=== PATIENT | male | born 1950 | race Caucasian/White ===

== ENCOUNTER → 2020-02-26 | Outpatient (CLI) | payer BC | END | disposition home or self-care (01) | LOC: LABWHC1 14:00 | PROVIDERS: ATTEND Internal Medicine | DX: Z20.828 Contact with and (suspected) exposure to other viral communicable diseases (principal) | CPT/HCPCS: U0003; C9803 ==

== ENCOUNTER → 2021-01-06 | Outpatient (CLI) | payer BC ==
--- NOTE | 2021-01-06 09:42 | XR ---
EXAMINATION TYPE: XR Hip Bilateral and AP pelvis DATE OF EXAM: 01/06/2021 CLINICAL HISTORY: pain TECHNIQUE: Single view the pelvis and bilateral hips submitted. FINDINGS: No evidence for fracture, dislocation or bony lesion. Joint spaces are well-preserved. S I joints appear symmetric. IMPRESSION: 1. No acute fracture or dislocation seen. ICD 10 NO FRACTURE, INITIAL EVALUATION
== END | disposition home or self-care (01) ==
LOC: RADXRMAIN 09:03
PROVIDERS: ATTEND Internal Medicine
DX: Z12.5 Encounter for screening for malignant neoplasm of prostate (principal); R10.30 Lower abdominal pain, unspecified
CPT/HCPCS: 73521

== ENCOUNTER → 2021-12-21 | Outpatient (CLI) | payer MEDICARE ==
[2021-12-21 11:14] LABS: ALT 16 U/L (10-49); AST 19 U/L (14-35); LDL Cholesterol,Calculated 105.1 mg/dL (0.0-131.0); VLDL Calculation 13.12 mg/dL (5.00-40.00)
== END | disposition home or self-care (01) ==
LOC: LABWHC1 07:25
PROVIDERS: ATTEND Internal Medicine Interventional Cardiology
DX: E78.2 Mixed hyperlipidemia (principal)
CPT/HCPCS: 36415; 80061; 84450; 84460

== ENCOUNTER → 2023-02-04 | Outpatient (CLI) | payer MEDICARE ==
[2023-02-04 08:57] LABS: African American GFR (CKD) >90 (>60 ml/min/1.73 sqM); Blood Urea Nitrogen 15 mg/dL (9-20); Non-African American GFR(CKD) >90 (>60 ml/min/1.73 sqM)
--- NOTE | 2023-02-04 16:44 | CT ---
CT CHEST FOR PULMONARY EMBOLISM. EXAMINATION TYPE: CT angio chest DATE OF EXAM: 02/04/2023 INDICATION: Hypertension and family history of aneurysms. CT DLP: 529.7 mGycm, Automated exposure control for dose reduction was used. CONTRAST: Patient injected with 100ml mL of Isovue 370. COMPARISON: None TECHNIQUE: CT of the chest is performed on a spiral scan at 2 mm thick sections. Study is performed with intravenous contrast timed for evaluation of the aorta. This will limit additional portions of t he evaluation. FINDINGS: There is a two-vessel arch with a common origin of the left common carotid artery with the innominate . No aortic dissection is evident. No obvious filling defects are identified within the vascular stru ctures. No mediastinal or hilar adenopathy enlarged by CT criteria is evident. The ascending aorta diameter at the level of the main pulmonary artery is 3.5 cm. The main pulmonary artery diameter at the bifur cation is 2.4 cm. Lung windows are clear. Limited CT section through the upper abdomen are unremarkable. IMPRESSIONS: 1. Unremarkable CTA of the thoracic aorta. No aneurysmal dilatation or dissection is evident.
== END | disposition home or self-care (01) ==
LOC: RADCTMAIN 08:20
PROVIDERS: ATTEND Internal Medicine Interventional Cardiology
DX: I10 Essential (primary) hypertension (principal); I77.810 Thoracic aortic ectasia; Z87.891 Personal history of nicotine dependence; Z82.49 Family history of ischemic heart disease and other diseases of the circulatory system
CPT/HCPCS: 82565; 84520; 71275; 36415; Q9967

== ENCOUNTER 2025-01-16 14:07 | Observation (INO) | payer MEDICARE ==
--- NOTE | 2025-01-16 14:47 | ED ---
General Adult HPI - General Chief complaint: Neuro Symptoms/Deficit Stated complaint: confusion Time Seen by Provider: 01/16/25 14:08 Source: patient, RN notes reviewed, old records reviewed Mode of arrival: ambulatory Limitations: no limitations - History of Present Illness Initial comments: 74-year-old male presents for evaluation of confusion and memory loss. Patient was noted to have some confusion and memory loss approximately 2 hours prior to arrival. He was unable to recall any of the events of yesterday evening. He did have an interval improvement and states that he was beginning to remember some events but had forgotten what occurred this morning. This was verified by his who is at bedside. He reported a mild headache. He denied any focal numbness or weakness. No speech abnormalities. No vision changes. - Related Data Home Medications Medication Instructions Recorded Confirmed Metoprolol Succinate (ER) [Toprol 12.5 mg PO DAILY 01/16/25 01/16/25 Xl] Allergies Allergy/AdvReac Type Severity Reaction Status Date / Time No Known Allergies Allergy Verified 01/16/25 17:21 Review of Systems ROS Statement: Those systems with pertinent positive or pertinent negative responses have been documented in the HPI. ROS Other: All systems not noted in ROS Statement are negative. Past Medical History Additional Past Medical History / Comment(s): irregular heart rate/beat History of Any Multi-Drug Resistant Organisms: None Reported Past Surgical History: No Surgical Hx Reported Past Psychological History: No Psychological Hx Reported Past Alcohol Use History: Rare Past Drug Use History: None Reported General Exam Limitations: no limitations General appearance: alert, in no apparent distress Head exam: Present: atraumatic, normocephalic Eye exam: Present: normal appearance, PERRL ENT exam: Present: normal exam Neck exam: Present: normal inspection. Absent: tenderness, meningismus Respiratory exam: Present: normal lung sounds bilaterally. Absent: respiratory distress, wheezes Cardiovascular Exam: Present: regular rate, normal rhythm GI/Abdominal exam: Present: soft. Absent: distended, tenderness Extremities exam: Present: normal inspection, normal capillary refill Neurological exam: Present: alert, oriented X3, CN II-XII intact. Absent: motor sensory deficit (NIH of 0) Psychiatric exam: Present: normal affect, normal mood Skin exam: Present: warm, dry, intact. Absent: cyanosis, diaphoretic Course Vital Signs 01/16/25 01/16/25 01/16/25 14:08 14:26 14:41 Temperature 97.9 F 97.9 F 97.9 F Pulse Rate 69 63 71 Respiratory 16 16 16 Rate Blood Pressure 147/90 O2 Sat by Pulse 97 96 95 Oximetry 01/16/25 01/16/25 01/16/25 14:56 14:57 16:52 Temperature 98.1 F 97.9 F Pulse Rate 65 72 54 L Respiratory 16 16 16 Rate Blood Pressure 123/67 142/65 O2 Sat by Pulse 96 99 99 Oximetry Medical Decision Making - Medical Decision Making Was pt. sent in by a medical professional or institution (, [facility], [employer], urgent ca re, hospital, or [facility]...) When possible be specific @ -No Did you speak to anyone other than the patient for history (EMS, parent, family, police, friend...)? What history was obtained from this source @ -No Did you review nursing and triage notes (agree or disagree)? Why? @ -I reviewed and agree with nursing and triage notes Were old charts reviewed (outside hosp., previous admission, EMS record, old EKG, old radiological studies, urgent care reports/EKG's, [facility] records)? Report findings @ -No old charts were reviewed Differential CVA Ischemic stroke, hemorrhagic stroke, brain tumor, atypical migraine, Wernicke's encephalopathy, seizure, multiple sclerosis, meningitis, encephalitis, hypoglycemia, Guillain-Wan, electrolytes disturbance, myasthenia gravis.... This is not meant to be an all-inclusive list EKG interpreted by me (3pts min.). @Sinus bradycardia rate of 56, [place] interval 166, QRS duration 102, QTc [address] segment elevation. X-rays interpreted by me (1pt min.). @ -None done CT interpreted by me (1pt min.). @ -CT of the brain without contrast is negative for intracranial hemorrhage or mass effect, CT angiography negative for acute occlusion or stenosis. U/S interpreted by me (1pt. min.). @ -None done What testing was considered but not performed or refused? (CT, X-rays, U/S, labs)? Why? @ -None What meds were considered but not given or refused? Why? @ -None Did you discuss the management of the patient with other professionals (oxana ionals i.e. , PA, SUPER[employer], lab, RT, psych nurse, psychosocial rehabilitation counselor, office lead, teacher, complaint evaluation officer, pillowcase cleaner)? Give summary @ -Case discussed with EM, will admit, case discussed with Dr. Lopez covering for neurology recommends EEG and MRI. Was smoking cessation discussed for >3mins.? @ -No Was critical care preformed (if so, how long)? @ -No Were there social determinants of health that impacted care today? How? (Homelessness, low income, unemployed, alcoholism, drug addiction, transportation, low edu. Level, literacy, decrease access to med. care, retirement, rehab)? @ -No Was there de-escalation of care discussed even if they declined (Discuss DNR or withdrawal of care, Hospice)? DNR status @ -No What co-morbidities impacted this encounter? (DM, HTN, Smoking, COPD, CAD, Cancer, CVA, ARF, Chemo, Hep., AIDS, mental health diagnosis, sleep apnea, morbid obesity)? @ -None Was patient admitted / discharged? Hospital course, mention meds given and route, prescriptions, significant lab abnormalities, going to OR and other pertinent info. @74-year-old male with acute memory loss over the past 4 hours resulting in missing memories spanning the last 24 hours. Patient has no focal neurologic findings. No ataxia. Normal vital signs. Patient is in sinus rhythm. NIH is 0. I did perform CT brain and CT angiography as well as laboratory testing and EKG. Workup in the emergency department is unremarkable. Patient given an aspirin. He is admitted for neurology consultation and recommendations at this time are to obtain MRI and EEG. Patient admitted to internal medicine. Undiagnosed new problem with uncertain prognosis? @ -No Drug Therapy requiring intensive monitoring for toxicity (Heparin, Nitro, Insulin, Cardizem)? @ -No Were any procedures done? @ -No Diagnosis/symptom? @ -[Acute memory loss Acute, or Chronic, or Acute on Chronic? @ -Acute Uncomplicated (without systemic symptoms) or Complicated (systemic symptoms)? @ -Default Side effects of treatment? @ -No Exacerbation, Progression, or Severe Exacerbation? @ -No Poses a threat to life or bodily function? How? (Chest pain, [place], [place], pneumonia, PE, COPD, DKA, ARF, appy, cholecystitis, CVA, Diverticulitis, Homicidal, Suicidal, threat to staff... and all critical care pts) @ -[Yes, CVA, seizure - Lab Data Result diagrams: 01/16/25 14:56 01/16/25 14:56 Lab Results 01/16/25 01/16/25 01/16/25 Range/Units 14:56 14:56 14:56 WBC 7.40 (4.50-10.00) 10*3/uL RBC 4.39 L (4.40-5.60) 10*6/uL Hgb 14.8 (13.0-17.0) g/dL Hct 41.1 (39.6-50.0) % MCV 93.6 (80.0-97.0) fL MCH 33.7 H (27.0-32.0) pg MCHC 36.0 (32.0-37.0) g/dL Plt Count 218 (140-440) 10*3/uL MPV 10.6 (9.5-12.2) fL Immature Gran % (Auto) 0.3 % Neutrophils % 66.5 % Lymphocytes % 18.4 % Monocytes % 9.5 % Eosinophils % 4.5 % Basophils % 0.8 % Immature Gran # 0.02 (0.00-0.04) 10*3/uL Neutrophils # 4.93 (1.80-7.70) 10*3/uL Lymphocytes # 1.36 (0.90-5.00) 10*3/uL Monocytes # 0.70 (0.20-1.00) 10*3/uL Eosinophils # 0.33 (0.04-0.35) 10*3/uL Basophils # 0.06 (0.00-0.10) 10*3/uL PT 10.9 (10.0-12.5) sec INR 1.0 (<1.2) APTT 22.3 (22.0-30.0) sec Sodium 136 L (137-145) mmol/L Potassium 4.3 (3.5-5.1) mmol/L Chloride 101 (98-107) mmol/L Carbon Dioxide 23 (22-30) mmol/L Anion Gap 12 mmol/L BUN 21 H (9-20) mg/dL Creatinine 0.68 (0.66-1.25) mg/dL Est GFR (CKD-EPI)AfAm >90 (>60 ml/min/1.73 sqM) Est GFR (CKD-EPI)NonAf >90 (>60 ml/min/1.73 sqM) Glucose 85 (74-99) mg/dL Calcium 9.9 (8.4-10.2) mg/dL Total Bilirubin 0.7 (0.2-1.3) mg/dL AST 28 (17-59) U/L ALT 19 (4-49) U/L Alkaline Phosphatase 61 (38-126) U/L Troponin I (0.000-0.034) ng/mL Total Protein 7.0 (6.3-8.2) g/dL Albumin 4.4 (3.5-5.0) g/dL 01/16/25 Range/Units 14:56 WBC (4.50-10.00) 10*3/uL RBC (4.40-5.60) 10*6/uL Hgb (13.0-17.0) g/dL Hct (39.6-50.0) % MCV (80.0-97.0) fL MCH (27.0-32.0) pg MCHC (32.0-37.0) g/dL Plt Count (140-440) 10*3/uL MPV (9.5-12.2) fL Immature Gran % (Auto) % Neutrophils % % Lymphocytes % % Monocytes % % Eosinophils % % Basophils % % Immature Gran # (0.00-0.04) 10*3/uL Neutrophils # (1.80-7.70) 10*3/uL Lymphocytes # (0.90-5.00) 10*3/uL Monocytes # (0.20-1.00) 10*3/uL Eosinophils # (0.04-0.35) 10*3/uL Basophils # (0.00-0.10) 10*3/uL PT (10.0-12.5) sec INR (<1.2) APTT (22.0-30.0) sec Sodium (137-145) mmol/L Potassium (3.5-5.1) mmol/L Chloride (98-107) mmol/L Carbon Dioxide (22-30) mmol/L Anion Gap mmol/L BUN (9-20) mg/dL Creatinine (0.66-1.25) mg/dL Est GFR (CKD-EPI)AfAm (>60 ml/min/1.73 sqM) Est GFR (CKD-EPI)NonAf (>60 ml/min/1.73 sqM) Glucose (74-99) mg/dL Calcium (8.4-10.2) mg/dL Total Bilirubin (0.2-1.3) mg/dL AST (17-59) U/L ALT (4-49) U/L Alkaline Phosphatase (38-126) U/L Troponin I 0.014 (0.000-0.034) ng/mL Total Protein (6.3-8.2) g/dL Albumin (3.5-5.0) g/dL Disposition Clinical Impression: Confusion, Altered mental status Disposition: ADMITTED IP TO THIS [facility] Condition: Stable Is patient prescribed a controlled substance at d/c from ED?: No Time of Disposition: 17:25
[2025-01-16] MEDS: SODIUM CHLORIDE 0.9% 500 ML 500 ML IV STA (15:03)
[2025-01-16 15:15] LABS: Basophils # (A) 0.06 10*3/uL (0.00-0.10); Basophils % (A) 0.8 %; Eosinophils # (A) 0.33 10*3/uL (0.04-0.35); Eosinophils % (A) 4.5 %; HCT 41.1 % (39.6-50.0); HGB 14.8 g/dL (13.0-17.0); Lymphocytes # (A) 1.36 10*3/uL (0.90-5.00); Lymphocytes % (A) 18.4 %; MCH 33.7 pg (27.0-32.0); MCHC 36.0 g/dL (32.0-37.0); MCV 93.6 fL (80.0-97.0); Monocytes # (A) 0.70 10*3/uL (0.20-1.00); Monocytes % (A) 9.5 %; Neutrophils # (A) 4.93 10*3/uL (1.80-7.70); Neutrophils % (A) 66.5 %; Platelet Count 218 10*3/uL (140-440); RBC 4.39 10*6/uL (4.40-5.60); RDW 12.8 % (11.5-14.5); WBC 7.40 10*3/uL (4.50-10.00)
[2025-01-16 15:30] LABS: INR 1.0 (<1.2); Partial Thromboplastin Time 22.3 sec (22.0-30.0); Prothrombin Time 10.9 sec (10.0-12.5)
[2025-01-16 15:35] LABS: ALT 19 U/L (4-49); AST 28 U/L (17-59); African American GFR (CKD) >90 (>60 ml/min/1.73 sqM); Albumin 4.4 g/dL (3.5-5.0); Alkaline Phosphatase 61 U/L (38-126); Anion Gap 12 mmol/L; Blood Urea Nitrogen 21 mg/dL (9-20); Calcium 9.9 mg/dL (8.4-10.2); Carbon Dioxide 23 mmol/L (22-30); Chloride 101 mmol/L (98-107); Glucose 85 mg/dL (74-99); Non-African American GFR(CKD) >90 (>60 ml/min/1.73 sqM); Potassium 4.3 mmol/L (3.5-5.1); Sodium 136 mmol/L (137-145); Total Protein 7.0 g/dL (6.3-8.2)
--- NOTE | 2025-01-16 16:48 | CT ---
EXAMINATION TYPE: CT brain wo con CT DLP: combined 1729.4 mGycm, Automated exposure control for dose reduction was used. DATE OF EXAM: 01/16/2025 4:22 PM COMPARISON: None. CLINICAL INDICATION:Male, 74 years old with history of Neuro deficit, acute, stroke suspected, memory loss for a hour TECHNIQUE: Brain: Multiple axial CT images of the brain were obtained without IV contrast. . Coronal and sagitta l reformats reviewed. FINDINGS: Brain: Extra-axial spaces: No abnormal extra-axial fluid collections. Ventricular system: Within normal limits Cerebral parenchyma: No acute intraparenchymal hemorrhage or mass effect. The weiner-white junction is well differentiated. Scattered hypoattenuating areas are seen within the periventricular white matte r. Cerebellum: Unremarkable. Mass effect: No evidence of midline shift. Intracranial vasculature: Atherosclerotic calcifications of the intracranial vessels. Soft tissues: Normal. Calvarium/osseous structures: No depressed skull fracture. Paranasal sinuses and mastoid air cells: The mastoid air cells are clear. Minimal mucosal thickening of the ethmoid sinuses. Visualized orbits: Bilateral aphakia IMPRESSION: 1. No acute intracranial process. 2. Nonspecific mild white matter changes, likely secondary to chronic small vessel ischemic disease. [facility], , 01/16/2025 4:46 PM
--- NOTE | 2025-01-16 16:51 | CT ---
EXAMINATION TYPE: CT angio head neck CT DLP: combined 1729.4 mGycm, Automated exposure control for dose reduction was used. DATE OF EXAM: 01/16/2025 4:35 PM COMPARISON: CT brain 01/16/2025. CLINICAL INDICATION:Male, 74 years old with history of Neuro deficit, acute, stroke suspected; sandy Licea jesse loss for a hour TECHNIQUE: Axially acquired helical CT angiogram of the head and neck was obtained with contrast util izing 75 cc of Isovue-370 administered intravenously. Axial images are supplemented with 3D reconstru ctions which were post-processed at an independent workstation. NASCET criteria used. MIP imaging performed on a separate workstation and submitted for review. FINDINGS: CTA HEAD: No evidence of acute intracranial hemorrhage, mass effect, or midline shift. The ventricles, sulci, a nd cisterns are unremarkable. The visualized portions of the internal carotid arteries, middle cerebral arteries, anterior cerebral arteries, and posterior cerebral arteries are patent. origin of the left [employer]. The basilar and vertebral arteries are patent. CTA NECK: Right Carotid System: The common carotid artery and external carotid artery are patent. The carotid bifurcation demonstrate s no evidence of hemodynamically significant stenosis. The remaining portions of the internal carotid artery demonstrate normal size without significant narrowing. Left Carotid System: The common carotid artery and external carotid artery are patent. The carotid bifurcation demonstrate s no evidence of hemodynamically significant stenosis. The remaining portions of the internal carotid artery demonstrate normal size without significant narrowing. Vertebral arteries are patent without evidence hemodynamically significant stenosis. The vertebral ar teries are codominant. There is a bovine aortic arch. The origins of the great vessels are patent. No evidence of hemodynami hina significant stenosis. Mild multilevel degenerative disc disease of the cervical spine. IMPRESSION: 1. No evidence of dissection of the cervical internal carotid arteries or vertebral arteries or any e vidence of significant stenosis at the carotid bifurcations. 2. No evidence of high-grade stenosis or intracranial aneurysm. [facility], , 01/16/2025 4:48 PM
[2025-01-16] MEDS: ASPIRIN 325 MG TAB PO STA (17:23)
[2025-01-16] MEDS: SODIUM CHLORIDE 0.9% 1,000 ML IV SCH (17:23)
[2025-01-17] MEDS: ASPIRIN 325 MG TAB PO SCH (08:16)
[2025-01-17 12:55] LABS: Cholesterol 182.00 mg/dL (0.00-200.00); HDL Cholesterol 54.40 mg/dL (40.00-60.00); LDL Cholesterol,Calculated 116.2 mg/dL (0.0-131.0); Triglycerides 56.90 mg/dL (0.00-149.00); VLDL Calculation 11.38 mg/dL (5.00-40.00)
--- NOTE | 2025-01-17 13:59 | P.HPIM ---
History of Present Illness Chief Complaint: Acute memory loss History of present illness; 74-year-old male with a background of irregular heart rate on Metoprolol, presented to the hospital with complaints of acute memory loss. Patient reports not being able to remember 1 hour of his previous day. He reports similar events the day before, with a total of 2 hours of memory loss. Patient reports saying that he does not recall events/movies from prior days during his episodes of memory loss which resulted in him going to the ER. Patient denies having similar events in the past. He reports having intercourse and increased exertion prior to the episode. Patient denies the usage of sex-inducing drugs which may contribute to memory loss. Patient's denied any behavioral changes and focal deficits during the episode. Of note, patient reports having migraines with aura previously. He recalls having visual auras last Saturday however denies headaches. In the ER, lab work reports troponin 0.014, WBC 7.4, hemoglobin 14.8, sodium 136, potassium 4.3. His vitals significant for heart rate of 58 otherwise stable. EKG obtained and independently reported as sinus bradycardia. CT brain performed ruling out acute intracranial process with mild white matter changes likely secondary to chronic small vessel ischemic disease. Furthermore a CT angiogram performed ruled out any evidence of dissection of the cervical internal carotid arteries and vertebral arteries as well as any evidence of stenosis at the carotid bifurcations. No high-grade stenosis or intracranial aneurysms reported. REVIEW OF SYSTEMS: As stated above in HPI. The rest of the 14-point review of systems is negative. PHYSICAL EXAMINATION: GENERAL: The patient is alert and oriented x3, not in any acute distress. Well developed, well nourished. HEENT: Pupils are round and equally reacting to light. EOMI. No scleral icterus. No conjunctival pallor. Normocephalic, atraumatic. CARDIOVASCULAR: S1 and S2 present. PULMONARY: Chest is clear to auscultation b/l, no wheezing or crackles. ABDOMEN: Soft, nontender, nondistended, normoactive bowel sounds. No palpable or ganomegaly. MUSCULOSKELETAL: No joint swelling or deformity. EXTREMITIES: No cyanosis, clubbing, or pedal edema. NEUROLOGICAL: Gross neurological examination did not reveal any focal deficits. Intact CN exam and no neurological deficits. SKIN: No rashes. Assessment and Plan #Acute memory loss - CT Brain normal - CT angio normal - Pending EEG - Pending MRI brain - Neurology on consult Chronic Conditions: #Irregular heart rate/beat drop - Initial EKG noting sinus bradycardia - Telemetry - Repeat EKG F:None E:None N:Heart healthy diet GI ppx: [employer] Dictation was produced using [employer] dictation software. please excuse any grammatical, word or spelling errors. 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, right ulnar nerve damage History of Any Multi-Drug Resistant Organisms: None Reported Past Surgical History: No Surgical Hx Reported Additional Past Surgical History / Comment(s): cataract removal bilaterally Past Anesthesia/Blood Transfusion Reactions: No Reported Reaction Past Psychological History: No Psychological Hx Reported Smoking Status: Former smoker Past Alcohol Use History: Rare Past Drug Use History: None Reported - Past Family History Mother Family Medical History: CVA/TIA Additional Family Medical History / Comment(s): emphysema Father Additional Family Medical History / Comment(s): AAA Medications and Allergies Home Medications Medication Instructions Recorded Confirmed Type Metoprolol Succinate (ER) [Toprol 12.5 mg PO DAILY 01/16/25 01/16/25 History Xl] Allergies Allergy/AdvReac Type Severity Reaction Status Date / Time No Known Allergies Allergy Verified 01/16/25 17:21 Physical Exam Vitals: Vital Signs Temp Pulse Pulse Resp BP BP Pulse Ox 01/17/25 07:53 97.8 F 58 L 16 121/73 97 01/17/25 03:34 97.8 F 71 16 118/69 98 01/17/25 01:57 58 L 01/16/25 22:53 58 L 16 108/62 98 01/16/25 22:00 56 L 01/16/25 21:04 97.6 F 56 L 16 137/67 97 01/16/25 20:47 97.7 F 61 16 114/63 95 01/16/25 18:29 97.9 F 77 16 126/66 99 01/16/25 16:52 97.9 F 54 L 16 142/65 99 01/16/25 14:57 72 16 123/67 99 01/16/25 14:56 98.1 F 65 16 96 01/16/25 14:41 97.9 F 71 16 95 01/16/25 14:26 97.9 F 63 16 96 01/16/25 14:08 97.9 F 69 16 147/90 97 Intake and Output 01/16/25 01/17/25 01/17/25 22:59 06:59 14:59 Intake Total 250 Balance 250 Intake: IV 10 Invasive Line 1 10 Oral 240 Other: Voiding Method Toilet Toilet Toilet # Voids 2 Weight 83.915 kg 83.6 kg Results CBC & Chem 7: 01/16/25 14:56 01/16/25 14:56 Labs: Abnormal Lab Results - Last 24 Hours (Table) 01/16/25 01/16/25 Range/Units 14:56 14:56 RBC 4.39 L (4.40-5.60) 10*6/uL MCH 33.7 H (27.0-32.0) pg Sodium 136 L (137-145) mmol/L BUN 21 H (9-20) mg/dL Thrombosis Risk Factor Assmnt - Choose All That Apply Any of the Below Risk Factors Present?: No Other Risk Factors: Yes Each Risk Factor Represents 2 Points: Age 61-74 years Other congenital or acquired thrombophilia - If yes, enter type in comment: No Thrombosis Risk Factor Assessment Total Risk Factor Score: 2 Thrombosis Risk Factor Assessment Level: Low Risk
[2025-01-17] MEDS: ATORVASTATIN 10 MG TAB PO SCH (19:46)
--- NOTE | 2025-01-18 01:44 | P.CNNES ---
History of Present Illness Consult date: 01/17/25 Requesting physician: Jhon Perkins Reason for Consult: Acute memory loss History of Present Illness: Patient is a 74-year-old right-handed male came to the hospital yesterday at 2:07 PM, for transient memory loss. Patient states that yesterday at around noon, his noticed that he was asking her about certain things and he did not know. He apparently lost memory for about 1 hour. At that time, he did not know some stuff from the past. At that time he did not remember watching a movie the night prior. He was also asking him questions. This episode lasted for about 1 hour. Subsequently he couldn't remember things that have happened in the past, but the things that happened during that our he still does not remember. There were no associated focal neurological symptoms. Patient states that he had performed intercourse shortly before his memory loss occurred. Vital signs on arrival blood pressure 147/90, pulse rate 69 temperature 97.9. Blood test shows normal CBC, PT PTT, CMP. Sodium slightly low 136. Troponin negative. CT head showed no acute process. Nonspecific white matter changes, likely secondary to chronic small vessel ischemic disease. I personally reviewed CT head, agree with the findings. EKG showed sinus bradycardia. Home medications include metoprolol. he takes it for skipping heartbeats, not for hypertension. He is trying to wean himself off metoprolol, as it has been giving him some headaches. He takes about full aspirin 2 times a week for heada ches. He used to take one baby aspirin every day but he has stopped it while ago. Patient states he has history of migraines all his life. He takes Excedrin as needed. He has not had a bad headache for last 2 years. He used to have migraines about twice a month, lasting for a few days without medication, or if he would catch it with Excedrin, it would go away and in a day. Review of Systems all pertinent positive and negative review of systems mentioned the HPI, otherwise unremarkable. 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, right ulnar nerve damage History of Any Multi-Drug Resistant Organisms: None Reported Past Surgical History: No Surgical Hx Reported Additional Past Surgical History / Comment(s): cataract removal bilaterally Past Anesthesia/Blood Transfusion Reactions: No Reported Reaction Past Psychological History: No Psychological Hx Reported Smoking Status: Former smoker Past Alcohol Use History: Rare Past Drug Use History: None Reported - Past Family History Mother Family Medical History: CVA/TIA Additional Family Medical History / Comment(s): emphysema Father Additional Family Medical History / Comment(s): AAA Medications and Allergies Home Medications Medication Instructions Recorded Confirmed Type Metoprolol Succinate (ER) [Toprol 12.5 mg PO DAILY 01/16/25 01/16/25 History Xl] Allergies Allergy/AdvReac Type Severity Reaction Status Date / Time No Known Allergies Allergy Verified 01/16/25 17:21 Physical Examination - Vital Signs Vital Signs: Vital Signs Temp Pulse Pulse Resp BP BP Pulse Ox 01/17/25 11:54 97.4 F L 70 14 150/66 98 01/17/25 07:53 97.8 F 58 L 16 121/73 97 01/17/25 03:34 97.8 F 71 16 118/69 98 01/17/25 01:57 58 L 01/16/25 22:53 58 L 16 108/62 98 01/16/25 22:00 56 L 01/16/25 21:04 97.6 F 56 L 16 137/67 97 01/16/25 20:47 97.7 F 61 16 114/63 95 01/16/25 18:29 97.9 F 77 16 126/66 99 01/16/25 16:52 97.9 F 54 L 16 142/65 99 01/16/25 14:57 72 16 123/67 99 01/16/25 14:56 98.1 F 65 16 96 01/16/25 14:41 97.9 F 71 16 95 01/16/25 14:26 97.9 F 63 16 96 Intake and Output 01/16/25 01/17/25 01/17/25 22:59 06:59 14:59 Intake Total 250 Balance 250 Intake: IV 10 Invasive Line 1 10 Oral 240 Other: Voiding Method Toilet Toilet Toilet # Voids 2 2 Weight 83.915 kg 83.6 kg Patient is an elderly male, in no acute distress. Patient is alert awake oriented to time place and person. Speech and language functions are normal. Patient can name and repeat very well. No aphasia or dys arthria. Attention, concentration and fund of knowledge is adequate. On cranial nerve examination, pupils are equal, round and reacting to light, visual tapia are full on confrontation, with no neglect on double simultaneous stimulation. Extraocular muscles are intact with no nystagmus. Face is symmetric, tongue protrudes to the midline. Palatal elevation and sensation normal, hearing and shoulder shrug normal, facial sensation normal. On muscle strength testing, there is no pronator drift and the strength is normal in arms and legs distally and proximally. Deep tendon reflexes are symmetric 1+ in the upper limbs at biceps and brachioradialis, 2 at the knees and plantars downgoing bilaterally. Sensory to touch is equal with no neglect on double simultaneous stimulation. Cerebellar function showed no ataxia for [id number] testing. No dysdiadochokinesia. No ataxia for [id number] testing on either side. Tone and bulk of muscles normal. Gait deferred.. On general examination, there is no carotid bruit or murmur, S1-S2 audible. Chest is clear on consultation. Abdomen is soft nontender. No organomegaly, bowel sounds present. Peripheral pulses are present. No peripheral edema. Results - Laboratory Findings CBC and BMP: 01/16/25 14:56 01/16/25 14:56 Abnormal Lab Findings: Abnormal Labs 01/16/25 07 14:56 14:56 RBC 4.39 L MCH 33.7 H Sodium 136 L BUN 21 H Assessment and Plan Assessment: * Transient global amnesia. * History of migraine headaches * Mild hyperlipidemia Plan: Symptoms have completely resolved in 1 hour. Current neurological examination is normal. NIH stroke scale is 0. MRI of the brain without contrast, evaluate for acute CVA 2-D echo with bubble study to rule out PFO CTA head and neck showed: No evidence of dissection of the cervical internal carotid arteries or vertebral arteries or any evidence of significant stenosis a t the carotid bifurcation. No evidence of high-grade stenosis or intracranial aneurysm. EEG, rule out epileptiform activity Fasting a.m. lipid panel cholesterol 182, LDL 116, HDL 54, triglycerides 56. We will start Lipitor 10 mg daily to target LDL at least < 100 Hemoglobin A1c Optimize control of blood pressure Start aspirin 325 mg daily. Patient used to take aspirin about twice a week, as stated for headaches. If workup negative, may decrease aspirin to 81 mg. Neuro checks every 4 hours. Telemetry monitoring rule out any arrhythmia DVT prophylaxis: Patient low risk, as he is fully ambulatory. Dr. Magan Dyer to resume neurology service the morning. Thank you for the consult.
[2025-01-18 06:56] LABS: Basophils # (A) 0.06 10*3/uL (0.00-0.10); Basophils % (A) 1.0 %; Eosinophils # (A) 0.33 10*3/uL (0.04-0.35); Eosinophils % (A) 5.7 %; HCT 41.5 % (39.6-50.0); HGB 14.4 g/dL (13.0-17.0); Lymphocytes # (A) 1.45 10*3/uL (0.90-5.00); Lymphocytes % (A) 25.1 %; MCH 33.1 pg (27.0-32.0); MCHC 34.7 g/dL (32.0-37.0); MCV 95.4 fL (80.0-97.0); Monocytes # (A) 0.56 10*3/uL (0.20-1.00); Monocytes % (A) 9.7 %; Neutrophils # (A) 3.36 10*3/uL (1.80-7.70); Neutrophils % (A) 58.3 %; Platelet Count 221 10*3/uL (140-440); RBC 4.35 10*6/uL (4.40-5.60); RDW 13.1 % (11.5-14.5); WBC 5.77 10*3/uL (4.50-10.00)
[2025-01-18 07:11] LABS: ALT 19 U/L (4-49); AST 26 U/L (17-59); African American GFR (CKD) >90 (>60 ml/min/1.73 sqM); Albumin 4.1 g/dL (3.5-5.0); Alkaline Phosphatase 54 U/L (38-126); Anion Gap 7 mmol/L; Blood Urea Nitrogen 14 mg/dL (9-20); Calcium 9.7 mg/dL (8.4-10.2); Carbon Dioxide 28 mmol/L (22-30); Chloride 106 mmol/L (98-107); Glucose 87 mg/dL (74-99); Non-African American GFR(CKD) 89 (>60 ml/min/1.73 sqM); Potassium 4.4 mmol/L (3.5-5.1); Sodium 141 mmol/L (137-145); Total Protein 6.5 g/dL (6.3-8.2)
[2025-01-18 11:38] VITALS: TEMP 98
--- NOTE | 2025-01-18 14:49 | P.PN ---
Subjective Subjective: 74-year-old male with a background of irregular heart rate on Metoprolol, presented to the hospital with complaints of acute memory loss. Patient reports not being able to remember 1 hour of his previous day. He reports similar events the day before, with a total of 2 hours of memory loss. Patient reports saying that he does not recall events/movies from prior days during his episodes of memory loss which resulted in him going to the ER. Patient denies having similar events in the past. He reports having intercourse and increased exertion prior to the episode. Patient denies the usage of sex-inducing drugs which may contribute to memory loss. Patient's denied any behavioral changes and focal deficits during the episode. Of note, patient reports having migraines with aura previously. He recalls having visual auras last Saturday however denies headaches. In the ER, lab work reports troponin 0.014, WBC 7.4, hemoglobin 14.8, sodium 136, potassium 4.3. His vitals significant for heart rate of 58 otherwise stable. EKG obtained and independently reported as sinus bradycardia. CT brain performed ruling out acute intracranial process with mild white matter changes likely secondary to chronic small vessel ischemic disease. Furthermore a CT angiogram performed ruled out any evidence of dissection of the cervical internal carotid arteries and vertebral arteries as well as any evidence of stenosis at the carotid bifurcations. No high-grade stenosis or intracranial aneurysms reported. 01/18/2025: Patient seen at bedside. No significant overnight events. Patient vitally stable with no acute concerns. Denies any new episodes of acute memory loss. Patient be seen by neurology. Patient had EEG and echo done today awaiting MRI brain. Patient currently on 4 hourly neuro obs. Pertinent positives and negatives discussed above, a complete review of systems was preformed and all the other systems were negative. Vitals Signs Reviewed. GENERAL: The patient is alert and oriented x3, not in any acute distress. Well developed, well nourished. HEENT: Pupils are round and equally reacting to light. EOMI. No scleral icterus. No conjunctival pallor. Normocephalic, atraumatic. CARDIOVASCULAR: S1 and S2 present. PULMONARY: Chest is clear to auscultation b/l, no wheezing or crackles. ABDOMEN: Soft, nontender, nondistended, normoactive bowel sounds. No palpable organomegaly. MUSCULOSKELETAL: No joint swelling or deformity. EXTREMITIES: No cyanosis, clubbing, or pedal edema. NEUROLOGICAL: Gross neurological examination did not reveal any focal deficits. Intact CN exam and no neurological deficits. SKIN: No rashes. Data Reviewed Today: 01/18/2025 Patient Labs: WBC 5.77, hemoglobin 14.4, sodium 141, potassium 4.4, creatinine 0.79. Assessment and Plan #Acute memory loss - Transient global amnesia - CT Brain and ango normal - Start aspirin 325 mg daily as per neurology. - Pending EEG results - Pending echo results to rule out PFO - Pending MRI brain noncontrast for acute CVA evaluation. - 4 hourly neuro OBS. - Neurology on consult, appreciate further recommendations. Chronic Conditions: #Irregular heart rate/beat drop - Initial EKG noting sinus bradycardia - Telemetry - Repeat EKG sinus rhythm. F:None E:None N:Heart healthy diet GI ppx: Pro[employer]ix Dictation was produced using [employer] dictation software. please excuse any grammatical, word or spelling errors. London Babcock MD PGY1 Internal Medicine Objective - Vital Signs Vital signs: Vital Signs Temp 98.0 F 01/18/25 11:36 Pulse 80 01/18/25 11:36 Resp 16 01/18/25 11:36 BP 152/84 01/18/25 11:36 Pulse Ox 97 01/18/25 11:36 FiO2 Intake & Output 01/17/25 01/18/25 01/18/25 18:59 06:59 18:59 Intake Total 1210 250 Balance 1210 250 Weight 83.2 kg Intake: IV 10 10 Invasive Line 1 10 10 Oral 1200 240 Other: Voiding Method Toilet Toilet Toilet # Voids 2 1 2 - Labs CBC & Chem 7: 01/18/25 06:06 01/18/25 06:06 Labs: Abnormal Lab Results - Last 24 Hours (Table) 01/18/25 Range/Units 06:06 RBC 4.35 L (4.40-5.60) 10*6/uL MCH 33.1 H (27.0-32.0) pg
--- NOTE | 2025-01-18 16:07 | MR ---
INDICATION: Patient age:Male; 74 years old; Reason for study: acute memory loss; PHH. COMPARISON: CT brain 01/16/2025, CTA of neck 01/16/2025. TECHNIQUE: Multi planar, multi sequence imaging was performed through the brain. The patient was then given 8.5 cc of Gadobutrol intravenously and multi planar, T1 fat-saturation images were obtained. FINDINGS: The weiner-white junctions, ventricular system, basal cisterns appear unremarkable. Mild age-appropriat e cerebral volume loss. Diffusion-weighted imaging shows no evidence of restricted diffusion to sugge st acute/subacute infarct. Intracranial arterial flow voids are maintained. Midline structures show n o abnormality. Mild amount of patchy small scattered areas of high T2/FLAIR signal intensity are seen within the periventricular and subcortical white matter. The susceptibility weighted images do not r eveal any evidence for micro-hemorrhage. After administration of gadolinium, no abnormal enhancement is seen. The bone marrow signal is within normal limits. Bilateral aphakia. Minimal mucosal thickening of the bilateral maxillary sinuses and ethmoid sinuses. IMPRESSION: 1. No evidence of intracranial mass, acute/subacute infarct, or abnormal enhancement. 2. Nonspecific mild white matter changes, likely related to small vessel ischemic disease. [facility], , 01/18/2025 4:04 PM
[2025-01-18 16:51] VITALS: BP 143/83; PULSE 64; RESP 18
[2025-01-18] MEDS: METOPROLOL SUCCINATE (ER) 25 MG TAB.ER.24H PO SCH (16:55)
[2025-01-18] MEDS ORDERED: levETIRAcetam 500 MG TAB PO SCH (17:00)
--- NOTE | 2025-01-18 17:09 | P.PN ---
Subjective Progress Note Date: 01/18/25 I am seeing the patient for the first time during this hospital admission. Please refer to Dr. Lopez's note for further details. It seems that the patient had episode of confusion this past Saturday and Saturday but he is able to read retain what transpired on Saturday but on Saturday there is 1 to 2-hour gap of confusion. Patient is at bedside who provides some the history. She stated that recently he has been having abnormal eye movement out of the ordinary/worse than baseline which was somewhat off. Patient does not have any history of seizures in the past. He feels he is back to baseline. Objective - Vital Signs Vital signs: Vital Signs Temp 98.0 F 01/18/25 16:45 Pulse 64 01/18/25 16:45 Resp 18 01/18/25 16:45 BP 143/83 01/18/25 16:45 Pulse Ox 98 01/18/25 16:45 FiO2 Intake & Output 01/17/25 01/18/25 01/18/25 18:59 06:59 18:59 Intake Total 1210 250 Balance 1210 250 Weight 83.2 kg Intake: IV 10 10 Invasive Line 1 10 10 Oral 1200 240 Other: Voiding Method Toilet Toilet Toilet # Voids 2 1 2 - Exam GENERAL: The patient is sitting in a recliner chair and not in acute distress. NEUROLOGICAL: Higher mental function: The patient is awake, alert, oriented to self, place and time. Patient is following commands. No aphasia and no neglect. Cranial nerves: The pupils are round, equal and reactive to light and accommodation. Visual tapia are full to confrontation throughout. Extraocular movement is intact no nystagmus is noted. Facial sensation is normal to touch throughout. The facial strength is normal throughout. Tongue is midline and moved [id number] without any difficulty. No dysarthria is noted. Motor: The strength is 5 over 5 throughout. Normal tone and bulk. Cerebellum: Normal finger to nose heel to heredia bilaterally. Sensation: Sensation is normal to touch throughout. Reflexes (right/left): 2+ throughout. Plantars are downgoing bilaterally. - Labs CBC & Chem 7: 01/18/25 06:06 01/18/25 06:06 Labs: Abnormal Lab Results - Last 24 Hours (Table) 01/18/25 Range/Units 06:06 RBC 4.35 L (4.40-5.60) 10*6/uL MCH 33.1 H (27.0-32.0) pg Assessment and Plan Assessment: * Transient global amnesia (TGA). On EEG it appears patient has left temporal discharges which likely explain episode of confusion/TGA. Per the also recently having abnormal eye movement which unsure if that was precursor to seizure then later presents to his recent episode of confusion. * History of migraine headaches * Mild hyperlipidemia Plan: MRI of the brain: pending. 2-D echo with bubble study to rule out PFO CTA head and neck showed: No evidence of dissection of the cervical internal carotid arteries or vertebral arteries or any evidence of significant stenosis at the carotid bifurcation. No evidence of high-grade stenosis or intracranial aneurysm. EEG: Preliminary report is abnormal and shows sharply contoured activity over th e left temporal which seems epileptiform discharge and can increase risk for focal seizure and status epilepticus. No seizure is noted. As result, I updated the patient and his about the EEG result and recommend to start him on antiseizure medication. They agreed on Topamax and not Keppra. They do not want Keppra because of side-effect of mood/behavioral issues. Per CT DMV because of concern for seizure, to avoid driving for 6 months until seizure free from last episode, avoid heights, avoid swimming unassisted or use heavy machinery. For Topamax, I started him on 50mg bid and in on week go up to 2 tab bid. Patient and his were notified of side-effects of Topamax. Fasting a.m. lipid panel cholesterol 182, LDL 116, HDL 54, triglycerides 56. We will start Lipitor 10 mg daily to target LDL at least < 100 Hemoglobin A1c: 5.3 Optimize control of blood pressure Per Dr. Lopez, start aspirin 325 mg daily. Patient used to take aspirin about twice a week, as stated for headaches and If workup negative, may decrease aspirin to 81 mg. I recommend since this is felt more seizure not needed on a daily basis Neuro checks every 4 hours. Telemetry monitoring rule out any arrhythmia DVT prophylaxis: Patient low risk, as he is fully ambulatory. Upon discharge, recommend the patient to follow-up with outpatient neurologist within 2 weeks. The plan is discussed with patient and his . Time with Patient: Less than 30
--- NOTE | 2025-01-18 18:07 | P.DS ---
Providers Date of admission: 01/16/25 17:09 Attending physician: Willem Gutierrez Consults: 01/16/25 17:10 Consult Physician Urgent Consulting Provider: Hailee Lopez Consult Reason/Comments: Acute memory loss Do you want consulting provider notified?: Yes Primary care physician: Rivas Sanders Hospital Course: Discharge Diagnosis: Acute memory loss due to new onset seizure disorder. Hospital Course: 74-year-old male with a background of irregular heart rate on Metoprolol, presented to the hospital with complaints of acute memory loss. Patient reports not being able to remember 1 hour of his previous day. He reports similar events the day before, with a total of 2 hours of memory loss. Patient reports saying that he does not recall events/movies from prior days during his episodes of memory loss which resulted in him going to the ER. Patient denies having similar events in the past. He reports having intercourse and increased exertion prior to the episode. Patient denies the usage of sex-inducing drugs which may contribute to memory loss. Patient's denied any behavioral changes and focal deficits during the episode. Of note, patient reports having migraines with aura previously. He recalls having visual auras last Saturday however denies headaches. In the ER, lab work reports troponin 0.014, WBC 7.4, hemoglobin 14.8, sodium 136, potassium 4.3. His vitals significant for heart rate of 58 otherwise stable. EKG obtained and independently reported as sinus bradycardia. CT brain performed ruling out acute intracranial process with mild white matter changes likely secondary to chronic small vessel ischemic disease. Furthermore a CT angiogram performed ruled out any evidence of dissection of the cervical internal carotid arteries and vertebral arteries as well as any evidence of stenosis at the carotid bifurcations. No high-grade stenosis or intracranial aneurysms reported. During the course of his hospital stay, patient evaluated and followed by neurology for possible stroke versus other etiologies workup. Patient initially placed on aspirin 325 mg. An MRI brain performed indicated no evidence of intracranial mass, acute/subacute infarct, or abnormal enhancement. Nonspecific mild white matter changes likely related to small vessel ischemic disease were also identified. An EEG was obtained significant for sharply contoured activity over the left temporal lobe in keeping with epileptiform discharges, increasing risk for focal seizures and status epilepticus. Patient's lab work was also significant for cholesterol 182, LDL 116, HDL 54, triglycerides 56 and a hemoglobin A1c 5.3. Patient's symptoms are therefore diagnosed to likely be as a result of a new onset seizure episode. Patient placed on Topamax 50 mg Bid, aspirin 81 mg and Lipitor 10 mg daily on discharge. Patient currently hemodynamically stable with A complete resolution of presenting complaint. Patient to follow-up with neurologist as outpatient and PCP in 1 week's time. Pt seen and examined at bedside: 01/18/2025 Vital signs reviewed and stable: GENERAL: The patient is alert and oriented x3, not in any acute distress. Well developed, well nourished. HEENT: Pupils are round and equally reacting to light. EOMI. No scleral icterus. No conjunctival pallor. Normocephalic, atraumatic. CARDIOVASCULAR: S1 and S2 present. PULMONARY: Chest is clear to auscultation b/l, no wheezing or crackles. ABDOMEN: Soft, nontender, nondistended, normoactive bowel sounds. No palpable organomegaly. MUSCULOSKELETAL: No joint swelling or deformity. EXTREMITIES: No cyanosis, clubbing, or pedal edema. NEUROLOGICAL: Gross neurological examination did not reveal any focal deficits. Intact CN exam and no neurological deficits. SKIN: No rashes. A total of greater than 30 minutes were spent preparing this complex discharge summary. Patient was discharged on 01/18/2025. Patient Condition at Discharge: Stable Plan - Discharge Summary Discharge Rx Participant: Yes New Discharge Prescriptions: New Aspirin 81 mg PO DAILY #30 tab Atorvastatin [Lipitor] 10 mg PO HS #30 tab Topiramate [Topamax] 50 mg PO BID #120 tab Continue Metoprolol Succinate (ER) [Toprol XL] 12.5 mg PO DAILY Discharge Medication List Metoprolol Succinate (ER) [Toprol XL] 12.5 mg PO DAILY 01/16/25 [History] Aspirin 81 mg PO DAILY #30 tab 01/18/25 [Rx] Atorvastatin [Lipitor] 10 mg PO HS #30 tab 01/18/25 [Rx] Topiramate [Topamax] 50 mg PO BID #120 tab 01/18/25 [Rx] Follow up Appointment(s)/Referral(s): Rivas Sanders MD [Primary Care Provider] - 1-2 days Magan Dyer MD [STAFF PHYSICIAN] - 1 Week Patient Instructions/Handouts: Topiramate (By mouth) Activity/Diet/Wound Care/Special Instructions: For patient to follow up with Neurologist as outpatient please.
[2025-01-18] MEDS: TOPIRAMATE 25 MG TAB PO SCH (18:39)
--- NOTE | 2025-01-19 04:09 | EEG ---
ELECTROENCEPHALOGRAM REPORT CLINICAL HISTORY: This is a 74-year-old gentleman with episode of altered mental status. The video EEG is obtained to evaluate for seizure epileptiform activity. RELEVANT MEDICATION: The patient is not on any antiseizure medication. EEG TYPE: This is a routine 21-channel EEG with video using the 10/20 electrode placement system. DESCRIPTION: Wakefulness is only obtained. During awake state, the posterior-dominant rhythm consists of hlo-rh-xovzwkmo voltage of 8.5 to 9.5 hertz activity that is well modulated, well sustained. There is no physiological stage 2 sleep architecture. There is rare left temporal slowing. Interictal and ictal, there is likely suspicious rare spike/sharp and sometimes followed by slow wave over the left temporal region, appears over the T5 lead. No seizures noted during the study. ACTIVATION PROCEDURE: Photic stimulation did not evoke a posterior driving response. There is no abnormality during the photic stimulation. Hyperventilation is not performed. CLINICAL INTERPRETATION: This is an abnormal routine EEG. The background is normal. There is highly suspicious rare left temporal discharges, predominately over T5 lead which can increase risk for focal seizure as well status epilepticus. There is rare left temporal slowing. No seizure is noted during the study. Recommend consideration of a repeat EEG as an outpatient versus a prolonged EEG as an outpatient. Clinical correlation is recommended. MMODL / IJN: [id number] / RITA
--- NOTE | 2025-01-19 08:36 | CA ---
Transthoracic Echo Report Name: Rivas May Age: 74 Gender: M : 1950 Exam Date: 01/18/2025 09:50 Exam Location: [place] [facility] Ht (in): 71 Wt (lb): 184 Ordering Physician: Hailee Lopez MD Attending/Referring Phys: [employer] Fitter Alida Cervantes RDCS Procedure CPT: Indications: TGA Cardiac Hx: Technical Quality: Fair Contrast 1: Agitated Saline Total Dose (mL): 10 Contrast 2: Total Dose (mL): MEASUREMENTS (Male / Female) Normal Values 2D ECHO LV Diastolic Diameter PLAX 4.9 cm 4.2 - 5.9 / 3.9 - 5.3 cm LV Systolic Diameter PLAX 3.7 cm IVS Diastolic Thickness 0.9 cm 0.6 - 1.0 / 0.6 - 0.9 cm LVPW Diastolic Thickness 1.2 cm 0.6 - 1.0 / 0.6 - 0.9 cm LV Relative Wall Thickness 0.4 RV Internal Dim ED PLAX 2.9 cm LVOT Diameter 2.4 cm LA Systolic Diameter LX 3.0 cm 3.0 - 4.0 / 2.7 - 3.8 cm LV Diastolic Volume MOD BP 77.3 cm??? 67 - 155 / 56 - 104 cm??? LV Systolic Volume MOD BP 27.5 cm??? - 58 / 19 - 49 cm??? LV Ejection Fraction MOD BP 64.5 % >= 55 % LV Cardiac Index MOD BP 1504.3 cm???/min???m??? LV Diastolic Volume MOD 4C 81.6 cm??? LV Systolic Volume MOD 4C 28.6 cm??? LV Ejection Fraction MOD 4C 64.9 % LV Cardiac Index MOD 4C 1597.7 cm???/min???m??? LV Diastolic Length 4C 7.7 cm LV Systolic Length 4C 6.2 cm LV Diastolic Volume MOD 2C 80.3 cm??? LV Systolic Volume MOD 2C 25.8 cm??? LV Ejection Fraction MOD 2C 67.9 % LV Cardiac Index MOD 2C 1646.8 cm???/min???m??? LV Diastolic Length 2C 7.4 cm LV Systolic Length 2C 6.0 cm LA Volume 42.7 cm??? 18 - 58 / 22 - 52 cm??? LA Volume Index 20.8 cm???/m??? 16 - 28 cm???/m??? Ascending Aorta Diameter 3.9 cm M-MODE Aortic Root Diameter MM 3.8 cm LA Systolic Diameter MM 2.6 cm LA Ao Ratio MM 0.7 AV Cusp Separation MM 3.1 cm DOPPLER AV Peak Velocity 99.4 cm/s AV Peak Gradient 4.0 mmHg LVOT Peak Velocity 98.1 cm/s LVOT Peak Gradient 3.9 mmHg AV Area Cont Eq pk 4.4 cm??? MV Area PHT 2.0 cm??? Mitral E Point Velocity 57.2 cm/s Mitral A Point Velocity 61.0 cm/s Mitral E to A Ratio 0.9 MV Deceleration Time 371.3 ms FINDINGS Left Ventricle Left ventricular ejection fraction is estimated at 55-60 %. Normal Left ventricular size, wall thickness, systolic function with no obvious regional wall motion abnormalities. Normal Left ventricular diastolic filling pattern. Right Ventricle Right ventricle not well visualized. Right Atrium Negative agitated saline bubble study for right to left shunt. Normal right atrial size. No right atrial thrombus or mass seen. Left Atrium Normal left atrial size. No left atrial thrombus or mass present. Mitral Valve Mild thickening/calcification of the anterior mitral valve leaflet. Trace mitral regurgitation. Aortic Valve Thickened aortic valve without stenosis. No aortic stenosis. No aortic regurgitation. Tricuspid Valve Tricuspid valve not well visualized. No tricuspid regurgitation. Pulmonic Valve Structurally normal pulmonic valve. Trace pulmonic regurgitation. Pericardium No pericardial effusion. No pleural effusion. Echo free space anterior to the right ventricle likely represents a fat pad. Aorta Aorta root is upper limits of normal , ascending aorta is normal CONCLUSIONS Normal biventricular systolic function No significant valvular abnormalities noted Previewed by: Dr. Jaleel Snow MD (Electronically Signed) Final Date: 19 January 2025 08:35
[2025-01-19] MEDS ORDERED: ASPIRIN 81 MG PO SCH (09:00)
== END 2025-01-18 18:35 | disposition home or self-care (01) ==
LOC: EC 14:07 → 3SCARD 17:09 → INTOOBSV 17:09 → 3SCARD 20:04
PROVIDERS: ADMIT Hospitalist; ATTEND Hospitalist
DX: G45.4 Transient global amnesia (principal); R00.1 Bradycardia, unspecified; E78.5 Hyperlipidemia, unspecified; Z87.891 Personal history of nicotine dependence; Z79.82 Long term (current) use of aspirin; Z79.899 Other long term (current) drug therapy
CPT/HCPCS: 36415; 70450; 70496; 70498; 70553; 80053; 80061; 83036; 84443; 84484; 85025; 85610; 85730; 93005; 93306; 95816; 99285